=== PATIENT | male | born 1975 | race Caucasian/White ===

== ENCOUNTER 2024-09-07 07:57 | Day surgery (SDC) | payer BC, OTHER ==
[2024-09-01 14:31] VITALS: BMI 24.4
[2024-09-07] MEDS ORDERED: BUPIVACAINE LIPOSOME/PF (EXPAREL) 266 MG/20 ML VIAL ONE (10:20)
[2024-09-07] MEDS ORDERED: MIDAZOLAM HCL 2 MG/2 ML SINGLE DOSE VIAL ONE (10:21)
[2024-09-07] MEDS ORDERED: BUPIVACAINE HCL/PF 0.5% (5MG/ML) 10 ML VIAL ONE (10:21)
[2024-09-07] MEDS ORDERED: PROPOFOL 20 ML ONE ×2 (10:38→10:47)
[2024-09-07] MEDS ORDERED: DEXAMETHASONE SOD PHOSPHATE 4 MG/1 ML VIAL ONE (10:51)
[2024-09-07] MEDS ORDERED: KETOROLAC TROMETHAMINE 30 MG/1 ML VIAL ONE (10:51)
[2024-09-07] MEDS ORDERED: ONDANSETRON 4 MG/2 ML VIAL ONE ×2 (10:51→12:05)
[2024-09-07] MEDS ORDERED: ceFAZolin SODIUM 1 GM VIAL ONE (11:03)
[2024-09-07] MEDS ORDERED: TRANEXAMIC ACID 1000 MG/10 ML VIAL ONE (11:27)
[2024-09-07] MEDS ORDERED: oxyCODONE HCL 5 MG TABLET PO PRN (12:27)
[2024-09-07] MEDS ORDERED: ONDANSETRON 4 MG/2 ML VIAL IVPUSH PRN (12:27)
[2024-09-07] MEDS ORDERED: LACTATED RINGERS SOLUTION 1,000 ML IV SCH (12:30)
[2024-09-07 13:29] VITALS: RESP 18
[2024-09-07 14:21] VITALS: BP 121/69; PULSE 81; TEMP 97.4
== END 2024-09-07 14:05 | disposition home or self-care (01) ==
LOC: FASU 07:57
PROVIDERS: ATTEND Orthopaedic Surgery Sports Medicine
PROC: 0LM30ZZ Reattachment of Right Upper Arm Tendon, Open Approach (ICD-10-PCS; principal; 2024-09-07 11:06)
DX: S46.211A Strain of muscle, fascia and tendon of other parts of biceps, right arm, initial encounter (principal); X58.XXXA Exposure to other specified factors, initial encounter; Y93.9 Activity, unspecified; Y92.9 Unspecified place or not applicable
CPT/HCPCS: 94760; C1713